=== PATIENT | male | born 1975 | race Two or more races ===

== ENCOUNTER 2016-07-16 15:18 | Emergency (ER) | payer BC ==
--- NOTE | ~2016-07-16 | ER ---
PATIENT'S NAME: GINO [facility]ES [facility] AGE: 40 Y [address] ROOM: [place] [id number] LOCATION: [facility] ADMIT DATE: 07/16/2016 ER/Outpatient Report DISCHARGE DATE: 07/16/2016 FAMILY PHYSICIAN: PHYSICIAN, NO ATTENDING PHYSICIAN: Solitario Bautista Time of Arrival: 1520 hours. Time of Exam: 1526 hours. CHIEF COMPLAINT: Left hip pain. HISTORY OF PRESENT ILLNESS: The patient states he has had pain in the left hip area for the past month. It has gotten worse over the last 3 days. Denies any injury to the hip area. 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 Does do a lot of twisting-type motion but does not do a lot of heavy lifting. States the pain is right in the hip area, not in his back. Does have some radiation down his leg at different times. Has not had any previous injuries to that hip. ALLERGIES: NO KNOWN ALLERGIES. CURRENT MEDICATIONS: Tried some [id number] ibuprofen 3 days ago. PAST MEDICAL HISTORY: Benign. PAST SURGERIES: Negative. SOCIAL HISTORY: He lives at home with his and 2 children. Works at [employer]. Denies any use of tobacco, drugs, or alcohol. REVIEW OF SYSTEMS: Negative other than those mentioned in the HPI. Bibiana was used for communication as the patient speaks Sinhala. PHYSICAL EXAMINATION: VITAL SIGNS: Weight 81.2 kilograms; blood pressure is 134/82; pulse of 96; respirations 14; temp 98.2, tympanic; O2 saturation is 95% on room air. GENERAL: The patient is awake, alert, and oriented x4. SKIN: [place], warm, and dry. PATIENT'S NAME: GINO FLORES [facility] AGE: 40 Y [address] ROOM: [place], [place] [id number] LOCATION: [facility] ADMIT DATE: 07/16/2016 ER/Outpatient Report DISCHARGE DATE: 07/16/2016 FAMILY PHYSICIAN: PHYSICIAN, NO ATTENDING PHYSICIAN: Solitario Bautista LUNGS: Respirations are even and nonlabored. Lung sounds are clear throughout. HEART: Regular rate and rhythm. MUSCULOSKELETAL: He does have pain in the left lateral hip area with palpation. Able to move his legs in all range of motion rivas without increased pain. Does have strong pedal pulses. No peripheral edema noted. Negative Homans' sign. EMERGENCY ROOM COURSE: X-ray was completed. No bony abnormality is seen. IMPRESSION: Left hip pain. PLAN: Home, rest. Ice or heat to the area. Prescription was written for ibuprofen 800 mg to take 3 times a day routinely for the next 10 days. [place] as needed for pain at night. If pain persists or does not improve, encouraged him to follow up with the primary provider. May need to consider physical therapy. The patient and his verbalized understanding. Again, Bibiana was used to interpret instructions for take home. [facility] APRN FOR MD PENG YOUSSEF/lisal /[id number] d: 07/17/16 0108 t: 07/28/16 1812, OUTPATIENT REPORT
== END 2016-07-16 16:19 | disposition disaster alternative care site (69) ==
LOC: GMED 15:18
DX: M25.552 Pain in left hip (principal)